=== PATIENT | female | born 1975 | race Caucasian/White ===

== ENCOUNTER 2020-06-27 11:28 | Outpatient (CLI) | payer MEDICAID, SELFPAY ==
--- NOTE | 2020-06-27 11:40 | XR_ITS ---
WS: [id number] TECHNIQUE: 2 views of the left hand CLINICAL INFORMATION: PAIN MULTIPLE JOINTS COMPARISON: None. FINDINGS: Normal metacarpals. Normal MCP joint. Metacarpal heads are normal in appearance. Normal PIP and DIP j oints. No evidence of acute fracture or dislocation. Ulna minus variance Radiocarpal joint: Normal. Carpal bones: Normal. XR/XR hand LT 2V [id number] IMPRESSION: Ulna minus variance
--- NOTE | 2020-06-27 11:40 | XR_ITS ---
WS: [id number] PELVIS TECHNIQUE: 1 view(s) of the pelvis CLINICAL INFORMATION: PAIN MULTIPLE JOINTS COMPARISON: None. FINDINGS: Visualized hips are normal in appearance. Normal acetabulum. Lower lumbar spine is normal. Inferior a nd superior pubic rami are normal. Normal iliopectineal line. Sacrum is normal in appearance. Normal sacroiliac joints. XR/XR pelvis 1-2V* [id number] IMPRESSION: Normal pelvis.
--- NOTE | 2020-06-27 11:40 | XR_ITS ---
WS: [id number] TECHNIQUE: 2 views of the right hand CLINICAL INFORMATION: PAIN MULTIPLE JOINTS COMPARISON: None. FINDINGS: Normal metacarpals. Normal MCP joint. Metacarpal heads are normal in appearance. Normal PIP and DIP j oints. No evidence of acute fracture or dislocation. Ulna minus variance. Radiocarpal joint: Normal. Carpal bones: Normal. XR/XR hand RT 2V [id number] IMPRESSION: Ulna minus variance. Otherwise normal right hand.
== END 2020-06-27 11:29 | disposition home or self-care (01) ==
LOC: RADWPI 11:33
PROVIDERS: Family Provider Family Medicine; PCP Family Medicine; Visit Provider Registered Nurse
DX: M25.50 Pain in unspecified joint (principal); G89.29 Other chronic pain
CPT/HCPCS: 72170; 73120

== ENCOUNTER → 2020-07-25 10:04 | Outpatient (BNVA) | payer MEDICAID, SELFPAY | PROVIDERS: Family Provider Family Medicine; PCP Family Medicine; Visit Provider Internal Medicine | DX: M25.50 Pain in unspecified joint (principal); Z11.59 Encounter for screening for other viral diseases; R53.83 Other fatigue; G62.9 Polyneuropathy, unspecified; D86.9 Sarcoidosis, unspecified; R79.82 Elevated C-reactive protein (CRP); L40.9 Psoriasis, unspecified; F32.9 Major depressive disorder, single episode, unspecified; R63.5 Abnormal weight gain; F17.210 Nicotine dependence, cigarettes, uncomplicated; Z68.32 Body mass index [BMI] 32.0-32.9, adult | CPT/HCPCS: 99204 ==

== ENCOUNTER 2020-07-25 11:35 | Outpatient (CLI) | payer MEDICAID, SELFPAY ==
--- NOTE | 2020-07-25 11:44 | XRR_ITS ---
PROCEDURE INFORMATION: Exam: XR Bilateral Sacroiliac Joints, 3 or More Views Exam date and time: 07/25/2020 12:40 PM Age: 44 years old Clinical indication: Condition or disease; Other: Psoriasis, unspecified; Additional info: L40.9 - psoriasis, unspecified TECHNIQUE: Imaging protocol: XR Bilateral XR of the sacroiliac joints, 3 or more views. COMPARISON: CR XR pelvis 1-2V* [id number] 06/27/2020 11:45 AM FINDINGS: Bones/joints: Normal. No acute fracture. There are mild symmetric osteoarthritic changes of the sacroiliac joints without sacroiliitis. No ankylosis. There are moderate degenerative changes in the right hip with a subchondral cyst and sclerosis in the acetabulum. Mild degenerative changes left hip. Soft tissues: Normal. XR/XR sacroiliac jts m 3V [id number] IMPRESSION: No acute findings. No sacroiliitis. Osteoarthritic changes are noted.
--- NOTE | 2020-07-25 11:44 | XRR_ITS ---
PROCEDURE INFORMATION: Exam: XR Right Hand Exam date and time: 07/25/2020 12:35 PM Age: 44 years old Clinical indication: Abnormal findings; Abnormal lab test; Other: Elevated c-reactive protein (crp); Swelling; Hand; Bilateral; Additional info: R79.82 - elevated c-reactive protein (crp) TECHNIQUE: Imaging protocol: XR Right hand. Views: 1 or 2 views. COMPARISON: CR XR hand RT 2V [id number] 06/27/2020 11:45 AM FINDINGS: Bones/joints: There is unchanged radial variance of the 2nd and 3rd MCP joints. No inflammatory erosions. No chondrocalcinosis. No significant osteoarthritic changes. No acute fracture or dislocation. Soft tissues: Normal. XR/XR hand RT 2V [id number] IMPRESSION: No acute bony abnormality. No inflammatory erosions. Mild radial variance is noted.
--- NOTE | 2020-07-25 11:44 | XRR_ITS ---
PROCEDURE INFORMATION: Exam: XR Left Foot Exam date and time: 07/25/2020 12:35 PM Age: 44 years old Clinical indication: Pain; Foot; Bilateral; Additional info: M25.50 - pain in unspecified joint TECHNIQUE: Imaging protocol: XR Left foot. Views: 1 or 2 views. COMPARISON: No relevant prior studies available. FINDINGS: Bones/joints: No periosteal reaction or inflammatory erosions. No acute fracture. No dislocation. No bony destruction or osteomyelitis. Soft tissues: There is no foreign body. Other findings: The Lisfranc joint alignment is intact. XR/XR foot LT 2V [id number] IMPRESSION: No acute bony abnormality is identified.
--- NOTE | 2020-07-25 11:44 | XRR_ITS ---
PROCEDURE INFORMATION: Exam: XR Left Hand Exam date and time: 07/25/2020 12:35 PM Age: 44 years old Clinical indication: Abnormal findings; Abnormal lab test; Other: Elevated c-reactive protein (crp); Swelling; Hand; Bilateral; Additional info: R79.82 - elevated c-reactive protein (crp) TECHNIQUE: Imaging protocol: XR Left hand. Views: 1 or 2 views. COMPARISON: CR XR hand LT 2V [id number] 06/27/2020 11:45 AM FINDINGS: Bones/joints: There is unchanged radial variance of the 2nd and 3rd MCP joints. No inflammatory erosions. No chondrocalcinosis. No significant osteoarthritic changes. No acute fracture or dislocation. There is ulnar minus variance. Soft tissues: Normal. XR/XR hand LT 2V [id number] IMPRESSION: No acute bony abnormality. No inflammatory erosions. Mild radial variance of the 2nd and 3rd MCP joints is noted. There is ulnar minus variance.
--- NOTE | 2020-07-25 11:44 | XRR_ITS ---
PROCEDURE INFORMATION: Exam: XR Right Foot Exam date and time: 07/25/2020 12:35 PM Age: 44 years old Clinical indication: Pain; Foot; Bilateral; Additional info: M25.50 - pain in unspecified joint TECHNIQUE: Imaging protocol: XR Right foot. Views: 1 or 2 views. COMPARISON: No relevant prior studies available. FINDINGS: Bones/joints: No periosteal reaction or inflammatory erosions. No acute fracture. No dislocation. No bony destruction or osteomyelitis. Soft tissues: There is no foreign body. Other findings: The Lisfranc joint alignment is intact. XR/XR foot RT 2V [id number] IMPRESSION: No acute bony abnormality is identified.
== END 2020-07-25 11:36 | disposition home or self-care (01) ==
LOC: RAD 11:38
PROVIDERS: PCP Family Medicine; Visit Provider Internal Medicine
DX: R79.82 Elevated C-reactive protein (CRP) (principal); M25.50 Pain in unspecified joint; L40.9 Psoriasis, unspecified; D86.9 Sarcoidosis, unspecified
CPT/HCPCS: 36415; 72202; 73120; 73620; 82306; 82310; 82533; 82728; 82784; 83036; 83516; 83540; 83735; 83970; 84100; 84207; 85018; 85651; 86140; 86704; 86803; 86812; 87340

== ENCOUNTER → 2021-03-20 15:25 | Outpatient (BNVA) | payer MEDICAID, SELFPAY | PROVIDERS: PCP Family Medicine; Visit Provider Obstetrics & Gynecology | DX: N83.291 Other ovarian cyst, right side (principal); N88.8 Other specified noninflammatory disorders of cervix uteri; Z90.721 Acquired absence of ovaries, unilateral | CPT/HCPCS: 76830 ==

== ENCOUNTER 2023-08-08 10:44 | Emergency (ER) | payer MEDICAID, SELFPAY ==
[2023-08-08 10:51] VITALS: BP 182/127; PULSE 105; RESP 17; TEMP 36.4; O2SAT 100
--- NOTE | 2023-08-08 11:00 | XR_ITS ---
WS: [id number] Right shoulder, 3 views, 08/08/2023 Clinical Data: injury Comparison: None. Findings: No fractures or dislocations are seen. The AC joint is normal. The adjacent right clavicle, right sca pula and ribs are normal. The soft tissues are unremarkable. Impression: Negative right shoulder.
--- NOTE | 2023-08-08 11:37 | ED_ITS ---
HPI - Extremity Injury (Upper) General: Chief Complaint: Extremity Injury, Upper Stated Complaint: right shoulder pain Time Seen by Provider: 08/08/23 11:18 Source: patient Mode of arrival: ambulatory Limitations: no limitations History of Present Illness: Patient is a 48-year-old female presents to ED today with complaint of right shoulder pain. She states 3 weeks ago she accidentally slipped and fell and landed on her right shoulder. She states she did not immediately noticed discomfort but states the following day the shoulder was bothering her. She since then has heard pops in the shoulder. She has not sought medical evaluation through her primary care provider. She has not noticed any swelling or color/temperature changes to the extremity. She has no other complaints at this time other than right shoulder pain. Pain is made worse with range of motion. MD complaint: injury to: right and shoulder Onset (ago): week(s) Other Extremity Injury: Right: shoulder Other injuries: none Place: home Severity: moderate Relieving factors: immobilization Exacerbating factors: movement of extremity Context: fall Associated symptoms: Reports no associated symptoms; Denies neck pain or weakness in extremities Review of Systems Card: Denies: chest pain, palpitations, irregular heart rhythm, edema, swelling of feet/ankles, lightheadedness, syncope or pre-syncope Resp: Denies: dyspnea Musc: Reports: joint pain (R shoulder); Denies: neck pain, back pain, extremity pain, extremity swelling or joint swelling Neuro: Denies: numbness in extremities, weakness in extremities or sensory changes PFS ED PFSH: Medical History Psychiatric care Right ovarian cyst Surgical History History of left oophorectomy Family History Father Clotting disorder Hypertension Heart disease Mother Diabetes Hypertension Brother Hypertension Family/Other Hypertension maternal and paternal aunt and uncle Grandfather Stroke paternal Denies family history of Colon cancer Ovarian cancer Hyperlipidemia Breast cancer Anesthesia complication Bleeding disorder Uterine cancer Thyroid disease Social History Smoking and tobacco/nicotine status: current every day tobacco/nicotine user cigarettes [ Other cigarette details: 1.5 cigarettes/day ] Alcohol intake: former Former alcohol use details: last drank 1 year ago Substance/Drug Use: former Date of last use: marijuana last used years ago Physical Exam Const: COMMON NORMALS: no acute distress, average body habitus, patient oriented x3, no limitations, alert and well nourished Neck/C-Spine: COMMON NORMALS: full ROM GENERAL: Yes normal visual inspection CERVICAL SPINE: No Cervical spine tenderness, No step off deformity and No Paracervical muscle tenderness Chest: COMMONS NORMALS: normal inspection of the chest and normal palpation of entire chest wall Extremity: COMMON NORMALS: normal to inspection, capillary refill normal, no joint enlargement and no clubbing, cyanosis or edema GENERAL: Yes normal exam except as noted RIGHT UPPER EXTREMITY: Yes shoulder joint Right shoulder: Yes Right shoulder joint inspection exam (normal gross inspection of shoulder), Yes Right shoulder joint ROM exam (full but hesitant ROM) and Yes Right shoulder joint neurovascular exam (normal) Neuro: COMMON NORMALS: patient oriented x3, moves all extremities, no focal motor deficits and no sensory deficits noted SENSORIUM/ORIENTATION: Yes alert Course Vital Signs: Vital signs: Vital Signs Temperature 97.6 F 08/08/23 10:51 Pulse Rate 105 H 08/08/23 10:51 Respiratory Rate 17 08/08/23 10:51 Blood Pressure 182/127 08/08/23 10:51 Pulse Oximetry 100 08/08/23 10:51 Oxygen Delivery Me thod Room Air 08/08/23 10:51 MDM - Extremity Injury (Upper) Medical Decision Making XR negative. She has allergies to almost all NSAIDS so will treat with a medrol dose neil and have her follow up with primary care. Medical Records I reviewed the patient's medical records. All radiology interpretation(s) finalized by discharge Discharge Plan Discharge Patient Disposition: Home Clinical Impression: Injury of right shoulder Qualifiers: Encounter type: initial encounter Qualified Code(s): S49.91XA - Unspecified injury of right shoulder and upper arm, initial encounter Condition: Stable Prescriptions: New Medrol (Neil) 4 mg tablets,dose pack See Rx Instructions .ROUTE .COMPLEX Qty: 21 0RF Rx Instructions: orally per package directions No Action fluoxetine 20 mg capsule 20 mg PO DAILY fluticasone propionate [Flonase Allergy Relief] 50 mcg/actuation spray,suspension 1 spray intranasal BID Rx Instructions: administer into each nostril albuterol sulfate [ProAir HFA] 90 mcg/actuation HFA aerosol inhaler 2 puff inhalation Q6H PRN acetaminophen [Tylenol] 325 mg tablet 325 mg PO QID PRN multivitamin [One Daily Multivitamin] Tablet 1 tab PO DAILY metoprolol succinate 200 mg tablet extended release 24 hr 200 mg PO DAILY hydrochlorothiazide 25 mg tablet 25 mg PO DAILY PRN Discharge Orders: Discharge ED (Routine); Ordered 08/08/23 Ordered By: Tori Sen Referrals: Meera Lang DO [Primary Care Provider] - Coding Level of Care Code ED Termite Control Representative for [facility] Beckett
[2023-08-08 12:14] VITALS: BP 182/127; PULSE 105; RESP 17; TEMP 36.4; O2SAT 100
== END 2023-08-08 12:15 | disposition home or self-care (01) ==
PROVIDERS: Emergency Provider Physician Assistant; PCP Family Medicine
DX: S49.91XA Unspecified injury of right shoulder and upper arm, initial encounter (principal); F17.210 Nicotine dependence, cigarettes, uncomplicated; W01.0XXA Fall on same level from slipping, tripping and stumbling without subsequent striking against object, initial encounter; Z88.6 Allergy status to analgesic agent
CPT/HCPCS: 73030; 99283

== ENCOUNTER → 2023-08-09 13:49 | Outpatient (BNVA) | payer MEDICAID, SELFPAY | PROVIDERS: PCP Family Medicine; Visit Provider Registered Nurse Neonatal Intensive Care | DX: R05.9 Cough, unspecified (principal); R52 Pain, unspecified; R11.10 Vomiting, unspecified; J06.9 Acute upper respiratory infection, unspecified; L01.00 Impetigo, unspecified | CPT/HCPCS: 87400; 87426 ==